=== PATIENT | male | born 1955 | race Caucasian/White ===

== ENCOUNTER 2021-02-23 12:23 | Day surgery (SDC) | payer BC, MEDICARE ==
[2021-02-23] MEDS ORDERED: Depo-Medrol 40 MG/ML IM ONE (12:24)
[2021-02-23] MEDS ORDERED: Sodium Chloride 0.9% 10 ML FLUSH Syringe IJ ONE (12:24)
[2021-02-23] MEDS ORDERED: DIPRIVAN 200 MG/20 ML IV ONE (14:16)
[2021-02-23] MEDS ORDERED: Lactated Ringers 1,000 ML IV ONE (14:57)
--- NOTE | 2021-02-23 16:36 | XRAY ---
Indication: Right L4-S1 transforaminal JOESPH. Intraoperative fluoroscopy provided for 19 seconds. 2 digital spot image submitted for interpretation demonstrate posterior needle tips projecting over the expected right L4 and L5 nerve roots. Small amount of contrast injected for needle tip placement. Correlate with intraoperative findings/report.
--- NOTE | 2021-02-23 16:47 | XRAY ---
19 seconds of fluoroscopy was used in surgery for a right L4-S1 transforaminal JOESPH.
== END 2021-02-23 14:42 | disposition home or self-care (01) ==
LOC: SDC-PAIN 12:23
PROVIDERS: ATTEND Psychiatry & Neurology Pain Medicine
DX: M54.16 Radiculopathy, lumbar region (principal); I10 Essential (primary) hypertension; Z79.899 Other long term (current) drug therapy
CPT/HCPCS: 20610; 64483; 64484; 72100; 77003; J1030; J2704; Q9966